=== PATIENT | female | born 1970 | race African-American/Black ===

== ENCOUNTER 2022-05-15 12:31 | Observation (INO) | payer OTHER ==
[2022-05-15 15:26] LABS: PH,URINE 6.5 (5.0-8.0); URINE APPEARANCE CLEAR; URINE BILIRUBIN NEGATIVE (NEGATIVE); URINE COLOR YELLOW; URINE GLUCOSE (UA) NEGATIVE (NEGATIVE); URINE KETONE NEGATIVE (NEGATIVE); URINE LEUK ESTERASE NEGATIVE (NEGATIVE); URINE NITRITE NEGATIVE (NEGATIVE); URINE PROTEIN NEGATIVE (NEGATIVE); URINE UROBILINOGEN 0.2 mg/dL (0.2-1.0)
[2022-05-15 16:17] LABS: BASO % 0.8 % (0-2.0); EOS % 0.5 % (0-4.5); HEMATOCRIT 35.5 % (32.4-45.2); HEMOGLOBIN 11.4 GM/dL (10.7-15.3); LYMPH % 28.1 % (8-40); MCH 25.5 pg (25.7-33.7); MCHC 32.1 g/dl (32.0-36.0); MEAN CELL VOLUME 79.5 fl (80-96); MONO % 7.1 % (3.8-10.2); NEUT % 63.5 % (42.8-82.8); PLATELET COUNT 270 10^3/uL (134-434); RBC 4.47 M/mm3 (3.60-5.2); RDW 18.9 % (11.6-15.6); WHITE BLOOD COUNT 7.5 K/mm3 (4.0-10.0)
[2022-05-15 16:26] LABS: PROTHROMBIN TIME (PATIENT) 11.5 SEC (9.7-13.0)
[2022-05-15 16:29] LABS: ACTIVATED PTT 30.9 SECONDS (25.2-36.5)
[2022-05-15 16:31] LABS: CALCIUM 9.6 mg/dL (8.5-10.1)
[2022-05-15 16:32] LABS: ALBUMIN 3.9 g/dl (3.4-5.0); BLOOD UREA NITROGEN 5.2 mg/dL (7-18)
[2022-05-15 16:34] LABS: CREATININE 0.6 mg/dL (0.55-1.3)
[2022-05-15 16:36] LABS: BILIRUBIN,TOTAL 0.5 mg/dL (0.2-1)
[2022-05-15] MEDS ORDERED: diazePAM 5 MG TABLET PO ONE (16:44)
[2022-05-15] MEDS ORDERED: diazePAM 5 MG TABLET ONE (16:47)
[2022-05-15] MEDS ORDERED: ACETAMINOPHEN 1000 MG/100 ML BAG IVPB ONE (18:56)
[2022-05-15] MEDS ORDERED: ACETAMINOPHEN INJECTION 100 ML IVPB ONE (18:56)
[2022-05-15] MEDS ORDERED: KETOROLAC TROMETHAMINE 15 MG/ML VIAL IVPUSH ONE (19:50)
[2022-05-15] MEDS ORDERED: KETOROLAC TROMETHAMINE 15 MG/ML VIAL ONE (19:53)
[2022-05-15] MEDS ORDERED: KETOROLAC TROMETHAMINE 15 MG/ML VIAL IVPUSH PRN (21:46)
[2022-05-15] MEDS ORDERED: MELATONIN 5 MG TABLETS PO ONE (22:21)
[2022-05-15] MEDS ORDERED: MELATONIN 5 MG TABLETS ONE (22:22)
[2022-05-16] MEDS ORDERED: diphenhydrAMINE HCL 25 MG CAPSULE (FP) PO ONE ×3 (00:21→23:45)
[2022-05-16 04:37] VITALS: BMI 32.5
[2022-05-16 07:23] LABS: BASO % 1.1 % (0-2.0); EOS % 3.5 % (0-4.5); HEMATOCRIT 29.8 % (32.4-45.2); HEMOGLOBIN 9.7 GM/dL (10.7-15.3); LYMPH % 42.8 % (8-40); MCHC 32.6 g/dl (32.0-36.0); MEAN CELL VOLUME 79.6 fl (80-96); MEAN PLT VOLUME 8.2 fl (7.5-11.1); MONO % 8.2 % (3.8-10.2); NEUT % 44.4 % (42.8-82.8); PLATELET COUNT 229 10^3/uL (134-434); RBC 3.75 M/mm3 (3.60-5.2); RDW 18.7 % (11.6-15.6); WHITE BLOOD COUNT 6.2 K/mm3 (4.0-10.0)
[2022-05-16 07:43] LABS: BLOOD UREA NITROGEN 7.1 mg/dL (7-18); CALCIUM 8.8 mg/dL (8.5-10.1)
[2022-05-16 07:46] LABS: MAGNESIUM 1.9 mg/dL (1.8-2.4)
[2022-05-16 07:47] LABS: CREATININE 0.6 mg/dL (0.55-1.3); PHOSPHOROUS 4.7 mg/dL (2.5-4.9)
[2022-05-16 09:06] LABS: TOT PROT 6.1 g/dl (6.4-8.2)
[2022-05-16 09:08] LABS: BILIRUBIN,TOTAL 0.5 mg/dL (0.2-1)
[2022-05-16] MEDS ORDERED: ENOXAPARIN NA (PORCINE) 40 MG/0.4 ML DISP.SYRIN SQ SCH (10:00)
[2022-05-16] MEDS ORDERED: PANTOPRAZOLE 40 MG TABLET PO SCH (10:45)
[2022-05-16] MEDS: ACETAMINOPHEN 500 MG TABLET (FP) PO PRN ×2 (10:45→20:39)
[2022-05-16] MEDS ORDERED: BISACODYL 5 MG TABLET.DR (FP) PO ONE (16:00)
[2022-05-16] MEDS ORDERED: PEG 3350/NA SULF BICARB CL/KCL 4000 ML SOLN.RECON PO ONE (17:00)
[2022-05-16] MEDS: ATORVASTATIN CA 20 MG TABLET (FP) PO SCH (21:14)
[2022-05-17 08:28] LABS: HEMATOCRIT 32.5 % (32.4-45.2); HEMOGLOBIN 10.3 GM/dL (10.7-15.3); MCH 25.5 pg (25.7-33.7); MCHC 31.8 g/dl (32.0-36.0); MEAN PLT VOLUME 8.3 fl (7.5-11.1); PLATELET COUNT 246 10^3/uL (134-434); RBC 4.06 M/mm3 (3.60-5.2); WHITE BLOOD COUNT 5.9 K/mm3 (4.0-10.0)
[2022-05-17 08:48] LABS: CALCIUM 9.1 mg/dL (8.5-10.1)
[2022-05-17 08:49] LABS: BLOOD UREA NITROGEN 4.4 mg/dL (7-18)
[2022-05-17 08:53] LABS: CREATININE 0.6 mg/dL (0.55-1.3)
[2022-05-17] MEDS ORDERED: NORTRIPTYLINE HCL 10 MG CAPSULE PO SCH (22:00)
[2022-05-17] MEDS: ATORVASTATIN CA 20 MG TABLET (FP) PO SCH (22:06)
[2022-05-17] MEDS: ACETAMINOPHEN 500 MG TABLET (FP) PO PRN (22:06)
[2022-05-18 08:10] LABS: HEMATOCRIT 32.8 % (32.4-45.2); HEMOGLOBIN 10.5 GM/dL (10.7-15.3); MCH 25.9 pg (25.7-33.7); MCHC 32.2 g/dl (32.0-36.0); MEAN CELL VOLUME 80.6 fl (80-96); MEAN PLT VOLUME 8.9 fl (7.5-11.1); PLATELET COUNT 239 10^3/uL (134-434); RBC 4.07 M/mm3 (3.60-5.2); WHITE BLOOD COUNT 8.6 K/mm3 (4.0-10.0)
[2022-05-18 08:34] LABS: CALCIUM 8.8 mg/dL (8.5-10.1)
[2022-05-18 08:35] LABS: BLOOD UREA NITROGEN 5.5 mg/dL (7-18)
[2022-05-18 08:38] LABS: CREATININE 0.6 mg/dL (0.55-1.3); PHOSPHOROUS 4.4 mg/dL (2.5-4.9)
[2022-05-18 14:29] VITALS: BP 135/69; PULSE 82; TEMP 98.3
[2022-05-18] MEDS ORDERED: amLODIPine BESYLATE 5 MG TABLET (FP) PO SCH (14:30)
== END 2022-05-18 17:50 | disposition home or self-care (01) ==
LOC: JER 12:31 → JERBED 17:50 → J4S 05-16 00:14
PROVIDERS: ADMIT Internal Medicine; ATTEND Internal Medicine
PROC: 3E033NZ Introduction of Analgesics, Hypnotics, Sedatives into Peripheral Vein, Percutaneous Approach (ICD-10-PCS; principal; 2022-05-15)
PROC: 3E0333Z Introduction of Anti-inflammatory into Peripheral Vein, Percutaneous Approach (ICD-10-PCS; 2022-05-15)
DX: G44.53 Primary thunderclap headache (principal); I10 Essential (primary) hypertension; R29.810 Facial weakness; K62.5 Hemorrhage of anus and rectum; J45.909 Unspecified asthma, uncomplicated; E66.8 Other obesity; Z68.32 Body mass index [BMI] 32.0-32.9, adult; Z98.84 Bariatric surgery status; R51.9 Headache, unspecified; Z91.010 Allergy to peanuts; K64.9 Unspecified hemorrhoids; F17.210 Nicotine dependence, cigarettes, uncomplicated
CPT/HCPCS: 36415; 70450-TC; 70545-TC; 70551-TC; 80048; 80053; 80061; 81003; 81025; 82272; 82728; 82962; 83036; 83540; 83550; 83735; 84100; 84484; 85025; 85027; 85610; 85730; 86850; 86900; 86901; 88305-TC; 93005; 93010; 99285-25; A9579; C9803-CS; G0378; U0003; U0005

== ENCOUNTER 2023-09-16 12:19 | Emergency (ER) | payer OTHER ==
[2023-09-16 12:28] VITALS: TEMP 98.1; BMI 28.8
[2023-09-16] MEDS ORDERED: ACETAMINOPHEN 1000 MG/100 ML BAG IVPB ONE (13:51)
[2023-09-16 14:09] VITALS: BP 150/95; PULSE 94; RESP 17
[2023-09-16] MEDS ORDERED: ACETAMINOPHEN INJECTION 100 ML IVPB ONE (14:11)
[2023-09-16 14:51] LABS: URINE APPEARANCE CLEAR; URINE BILIRUBIN NEGATIVE (NEGATIVE); URINE COLOR YELLOW; URINE GLUCOSE (UA) NEGATIVE (NEGATIVE); URINE KETONE NEGATIVE (NEGATIVE); URINE LEUK ESTERASE NEGATIVE (NEGATIVE); URINE NITRITE NEGATIVE (NEGATIVE); URINE PROTEIN NEGATIVE (NEGATIVE); URINE UROBILINOGEN 0.2 mg/dL (0.2-1.0)
[2023-09-16 15:19] LABS: POTASSIUM 4.2 mmol/L (3.5-5.1)
[2023-09-16 15:21] LABS: BLOOD UREA NITROGEN 15.4 mg/dL (7-18); CALCIUM 9.1 mg/dL (8.5-10.1)
[2023-09-16 15:22] LABS: ALBUMIN 3.5 g/dl (3.4-5.0); BASO % 0.6 % (0-2.0); EOS % 1.2 % (0-4.5); HEMATOCRIT 39.7 % (32.4-45.2); HEMOGLOBIN 12.9 GM/dL (10.7-15.3); LYMPH % 21.3 % (8-40); MCH 25.9 pg (25.7-33.7); MCHC 32.5 g/dl (32.0-36.0); MEAN CELL VOLUME 79.7 fl (80-96); MEAN PLT VOLUME 9.9 fl (7.5-11.1); MONO % 5.8 % (3.8-10.2); NEUT % 71.1 % (42.8-82.8); PLATELET COUNT 279 10^3/uL (134-434); RBC 4.98 M/mm3 (3.60-5.2); RDW 17.1 % (11.6-15.6); WHITE BLOOD COUNT 8.1 K/mm3 (4.0-10.0)
[2023-09-16 15:24] LABS: CREATININE 0.7 mg/dL (0.55-1.3)
[2023-09-16 15:25] LABS: INR 1.01 (0.83-1.09); PROTHROMBIN TIME (PATIENT) 11.7 SEC (9.7-13.0)
[2023-09-16 15:26] LABS: BILIRUBIN,TOTAL 0.2 mg/dL (0.2-1); TOT PROT 7.4 g/dl (6.4-8.2)
[2023-09-16 15:27] LABS: ACTIVATED PTT 30.3 SECONDS (25.2-36.5)
[2023-09-16] MEDS ORDERED: METOCLOPRAMIDE HCL INJECTION 10 MG/2 ML VIAL IVPB ONE (16:30)
[2023-09-16] MEDS ORDERED: METOCLOPRAMIDE HCL INJECTION 10 MG/2 ML VIAL ONE (17:05)
== END 2023-09-16 17:50 | disposition home or self-care (01) ==
LOC: JER 12:19
PROC: 3E033NZ Introduction of Analgesics, Hypnotics, Sedatives into Peripheral Vein, Percutaneous Approach (ICD-10-PCS; principal; 2023-09-16)
PROC: 3E033GC Introduction of Other Therapeutic Substance into Peripheral Vein, Percutaneous Approach (ICD-10-PCS; 2023-09-16)
DX: K62.5 Hemorrhage of anus and rectum (principal); K64.8 Other hemorrhoids
CPT/HCPCS: 36415; 71045-TC-FY; 80053; 81003; 84484; 84703; 85025; 85610; 85730; 86850; 86900; 86901; 87086; 93005; 93010; 99285-25